=== PATIENT | female | born 1955 | race Caucasian/White ===

== ENCOUNTER 2017-07-30 11:30 | Emergency (ER) | payer SELFPAY ==
[2017-07-30] MEDS ORDERED: NS 0.9% 1000 ML* 1,000 ML IV ONE (12:33)
[2017-07-30 14:33] LABS: Hematocrit 38 % (35-47); Hemoglobin 12.9 g/dl (12.0-16.0); Mean Corpuscular HGB Conc 34 g/dl (31-36); Mean Corpuscular Hemoglobin 30 pg (27-31); Mean Corpuscular Volume 89 fL (80-97); Mean Platelet Volume 9 um3 (7.4-10.4); Red Blood Count 4.28 10^6/ul (4.0-5.4); Red Cell Distribution Width 15 % (10.5-15); White Blood Count 11.6 10^3/ul (3.5-10.8)
[2017-07-30 14:43] LABS: BUN/Creatinine Ratio 23.7 (8-20); Calcium 9.3 mg/dL (8.6-10.3); EGFR African American 99.8 (>60); EGFR Non-African American 77.6 (>60); Globulin 3.1 g/dL (2-4); Magnesium 1.9 mg/dL (1.9-2.7); Potassium 3.6 mmol/L (3.5-5.0); Total Bilirubin 0.6 mg/dL (0.2-1.0); Total Protein 7.1 g/dL (6.4-8.9)
[2017-07-30 14:49] LABS: Urine Bacteria Absent (Absent); Urine Bilirubin Negative (Negative); Urine Glucose Negative (Negative); Urine Nitrite Negative (Negative)
[2017-07-30] MEDS ORDERED: Iohexol 300* (CONTRAST) 10 ML SDV IV ONE (15:00)
[2017-07-30 15:01] LABS: TSH (Thyroid Stimulating Horm) 1.33 mcIU/mL (0.34-5.60)
--- NOTE | 2017-07-30 15:33 | RAD ---
INDICATION: Left lower quadrant pain. COMPARISON: None TECHNIQUE: Axial source images were obtained from the hemidiaphragms to the symphysis pubis following administration of oral and intravenous contrast. 115 mL Omnipaque 300 was utilized. Coronal and sagittal reconstructed images were acquired. Lung bases: The lung bases are clear. Liver: The liver is normal in size. There is a subcentimeter cyst or hemangioma involving the anterior right hepatic lobe.. There is no ductal dilatation. Gallbladder: There is nonvisualization gallbladder. The surgical history is marked as "none" Spleen: The spleen is normal in size. There are no masses. Pancreas: There is no focal pancreatic mass or ductal dilatation. Adrenal glands: There is no evidence of adrenal mass. Kidneys: The kidneys are normal in size and position. There are prompt nephrograms and there is prompt excretion bilaterally. There are no renal parenchymal masses. There is no evidence of nephrolithiasis. Adenopathy: There is no evidence of adenopathy by size criteria. Fluid collections: There are no free or localized fluid collections. Vessels:There are no significant atherosclerotic changes involving the aorta. There is no focal aneurysm. The iliac vessels are normal in caliber. The IVC appears normal. GI tract: There are no acute CT bowel findings. There is no obstruction. The stomach and small bowel appear normal. The lower GI tract remarkable for diverticula of the sigmoid and descending colon with inflammatory change with bowel wall thickening and perienteric stranding at the junction of the descending colon and sigmoid colon. There are no findings of obstruction, perforation, or abscess. The appendix appears normal. Pelvic organs: There is presumed hysterectomy although the surgical history is marked as "none". There is no adnexal mass Bladder: There are no bladder masses. Abdominal and pelvic soft tissues: The extraperitoneal abdominal and pelvic soft tissues appear normal.. Osseous structures: There are no acute osseous findings. There is multilevel degenerative disc disease. Other: None IMPRESSION: DIVERTICULITIS OF THE DESCENDING AND SIGMOID COLON WITHOUT OBSTRUCTION, PERFORATION, OR ABSCESS FORMATION
[2017-07-30] MEDS ORDERED: metroNIDAZOLE TAB* 250 MG PO ONE (16:44)
[2017-07-30] MEDS ORDERED: Ciprofloxacin TAB* 500 MG PO ONE (16:44)
[2017-07-30 17:27] VITALS: BP 115/68
--- NOTE | 2017-07-30 22:04 | ED ---
Susan Morales Gabriel, scribed for Britany White MD on 07/30/17 at 1245 . Abdominal Pain/Female - HPI Summary HPI Summary: This patient is a 61 year old F presenting to [facility] with a chief complaint of ABD pain since yesterday at 1030. The patient rates the pain 8/10 in severity and describes it as sharp and residing in her LLQ. Patient reports nausea. Patient denies v/d, urinary symptoms, fever, chills, MILIAN, ear pain, neck pain, SOB, CP, sore throat, melena, dysuria, bruises, anxiety and depression. Pt has eczema (not increased from baseline). - History of Current Complaint Chief Complaint: EDAbdPain Stated Complaint: LT ABD PAIN Hx Obtained From: Patient Onset/Duration: Lasting Days - 2, Still Present Timing: Constant Severity Initially: Moderate Severity Currently: Moderate Pain Intensity: 8 Pain Scale Used: 0-10 Numeric Location: Discrete At: LLQ Radiates: No Associated Signs and Symptoms: Positive: Negative - v/d, urinary symptoms, fever , chills, MILIAN, ear pain, neck pain, SOB, CP, sore throat, melena, dysuria, bruises, anxiety and depression, Nausea Allergies/Adverse Reactions: Allergies Allergy/AdvReac Type Severity Reaction Status Date / Time No Known Allergies Allergy Verified 07/30/17 11:34 PMH/Surg Hx/FS Hx/Imm Hx Previously Healthy: No GI History: Reports: Hx Diverticulosis Psychiatric History: Denies: Hx Anxiety, Hx Depression Infectious Disease History: No Infectious Disease History: Denies: Traveled Outside the [place] in Last 30 Days - Family History Known Family History: Positive: Cardiac Disease, Hypertension Negative: Diabetes, Renal Disease, Blood Disorder - Social History Alcohol Use: None Substance Use Type: Reports: None Smoking Status (MU): Never Smoked Tobacco Review of Systems Negative: Fever, Chills Negative: Ear Ache Negative: Chest Pain Negative: Shortness Of Breath Gastrointestinal: Negative - melena Positive: Abdominal Pain, Nausea. Negative: Vomiting, Diarrhea Negative: dysuria, hematuria Musculoskeletal: Negative - neck pain Positive: Rash - eczema (not increased from baseline) . Negative: Bruising Negative: Headache Negative: Anxious, Depressed All Other Systems Reviewed And Are Negative: No Physical Exam - Summary Physical Exam Summary: Appearance: Alert, conversive, nontoxic appearing Skin: Warm, dry, no mottling, no rashes, no contusions HEENT: EOMI, PERRL, slightly dry mucous membranes Neck: No masses on the neck, supple Respiratory: Clear to auscultation, breath sounds present, no rales, no rhonchi , no wheezes Cardiovascular: RRR, pulses are symmetrical in both lower and upper extremities Abdomen: Soft, TTP in LLQ and LUQ Bowel Sounds: Present, good bowel sounds Musculoskeletal: No CVA tenderness, no obvious deformity, moving all extremities in a grossly normal manner Neurological: A&Ox3, CN II-XII Intact, moving all extremities symmetrically Psychiatric: Normal affect and mood Triage Information Reviewed: Yes Vital Signs On Initial Exam: Initial Vitals Temp Pulse Resp BP Pulse Ox 97.4 F 73 15 135/71 97 07/30/17 11:34 07/30/17 11:34 07/30/17 11:34 07/30/17 11:34 07/30/17 11:34 Vital Signs Reviewed: Yes - Mario Coma Scale Coma Scale Total: 15 Diagnostics - Vital Signs Vital Signs Temp Pulse Resp BP Pulse Ox 07/30/17 12:00 64 96 07/30/17 11:58 62 96 07/30/17 11:34 97.4 F 73 15 135/71 97 - Laboratory Lab Results: Lab Results 07/30/17 07/30/17 07/30/17 Range/Units 12:45 12:45 12:45 WBC 11.6 H (3.5-10.8) 10^3/ul RBC 4.28 (4.0-5.4) 10^6/ul Hgb 12.9 (12.0-16.0) g/dl Hct 38 (35-47) % MCV 89 (80-97) fL MCH 30 (27-31) pg MCHC 34 (31-36) g/dl RDW 15 (10.5-15) % Plt Count 315 (150-450) 10^3/ul MPV 9 (7.4-10.4) um3 Neut % (Auto) 66.8 (38-83) % Lymph % (Auto) 23.7 L (25-47) % [place] % (Auto) 8.8 (1-9) % Eos % (Auto) 0.4 (0-6) % Baso % (Auto) 0.3 (0-2) % Absolute Neuts (auto) 7.7 (1.5-7.7) 10^3/ul Absolute Lymphs (auto) 2.7 (1.0-4.8) 10^3/ul Absolute Monos (auto) 1.0 H (0-0.8) 10^3/ul Absolute Eos (auto) 0 (0-0.6) 10^3/ul Absolute Basos (auto) 0 (0-0.2) 10^3/ul Absolute Nucleated RBC 0 10^3/ul Nucleated RBC % 0 Sodium 137 (133-145) mmol/L Potassium 3.6 (3.5-5.0) mmol/L Chloride 106 (101-111) mmol/L Carbon Dioxide 25 (22-32) mmol/L Anion Gap 6 (2-11) mmol/L BUN 18 (6-24) mg/dL Creatinine 0.76 (0.51-0.95) mg/dL Est GFR ( Amer) 99.8 (>60) Est GFR (Non-Af Amer) 77.6 (>60) BUN/Creatinine Ratio 23.7 H (8-20) Glucose 96 (70-100) mg/dL Calcium 9.3 (8.6-10.3) mg/dL Magnesium 1.9 (1.9-2.7) mg/dL Total Bilirubin 0.60 (0.2-1.0) mg/dL AST 14 (13-39) U/L ALT 13 (7-52) U/L Alkaline Phosphatase 88 (34-104) U/L Total Protein 7.1 (6.4-8.9) g/dL Albumin 4.0 (3.2-5.2) g/dL Globulin 3.1 (2-4) g/dL Albumin/Globulin Ratio 1.3 (1-3) TSH 1.33 (0.34-5.60) mcIU/mL Urine Color Yellow Urine Appearance Clear Urine pH 5.0 (5-9) Ur Specific [place] 1.029 (1.010-1.030) Urine Protein Negative (Negative) Urine Ketones Negative (Negative) Urine Blood 2+ H (Negative) Urine Nitrate Negative (Negative) Urine Bilirubin Negative (Negative) Urine Urobilinogen Negative (Negative) Ur Leukocyte Esterase Trace H (Negative) Urine WBC (Auto) 1+(6-10/hpf) H (Absent) Urine RBC (Auto) Trace(0-2/hpf) (Absent) Ur Squamous Epith Cells Present H (Absent) Urine Bacteria Absent (Absent) Urine Glucose Negative (Negative) Result Diagrams: 07/30/17 12:45 07/30/17 12:45 Lab Statement: Any lab studies that have been ordered have been reviewed, and results considered in the medical decision making process. - CT ABD/Pelvis CT CT Interpretation Completed By: Radiologist - DIVERTICULITIS OF THE DESCENDING AND SIGMOID COLON WITHOUT OBSTRUCTION, PERFORATION, OR ABSCESS FORMATION ED physician has reviewed this radiology report and agrees. Abdominal Pain Fem Course/Dx - Course Course Of Treatment: This patient is a 61 year old F presenting to [facility] with a chief complaint of ABD pain since yesterday at 1030. The patient rates the pain 8/10 in severity and describes it as sharp and residing in her LLQ. . ABD/ Pelvis CT reveals, per radiologist, DIVERTICULITIS OF THE DESCENDING AND SIGMOID COLON WITHOUT OBSTRUCTION,. PERFORATION, OR ABSCESS FORMATION. ED physician has reviewed this radiology report and agrees. Test results with no significant abnormalities except for UA revealing slight dehydration. Her CBC was normal and her UA was negative for a UTI. In the ED course the patient was given Cipro and IV fluids. Patient will be discharged with prescription for Cipro and Metronidazole and follow up from Dr. Gupta. The patient is agreeable with this plan. - Diagnoses Provider Diagnoses: Diverticulitis Discharge - Discharge Plan Condition: Stable Disposition: HOME Prescriptions: Ciprofloxacin HCl [Cipro 500 MG TAB] 500 mg PO BID #20 tab Metronidazole [Flagyl 500 MG TAB] 500 mg PO BID #20 tab Forms: *Work Release Referrals: Jordan Gupta MD [Medical Doctor] - Additional Instructions: Take tylenol and motrin for pain. return if worse or any new symptoms. It is imperative to follow up with your primary care physician. The documentation as recorded by the Susan montiel Gabriel accurately reflects the service I personally performed and the decisions made by , Britany White MD.
== END 2017-07-30 17:27 | disposition home or self-care (01) ==
LOC: ED 11:30
DX: K57.92 Diverticulitis of intestine, part unspecified, without perforation or abscess without bleeding (principal); R10.32 Left lower quadrant pain; R11.0 Nausea
CPT/HCPCS: 36415; 74177; 80053; 81003; 81015; 83735; 84443; 85025; 87086; 99282; A9270-GY; Q9967

== ENCOUNTER 2021-07-28 17:51 | Inpatient (IN) ==
[2021-07-28] MEDS ORDERED: VERAPAMIL 2.5 MG/ML 2 ML VIAL ** 5 mg/2 ml ONE (17:55)
[2021-07-28] MEDS ORDERED: Midazolam 5 mg/5 ml VIAL 1 mg/ml 5 ml VIAL (5 mg) ONE (17:55)
[2021-07-28] MEDS ORDERED: Iohexol 350 (CONTRAST) 200 ML MDV IV ONE ×2 (17:55→19:53)
[2021-07-28] MEDS ORDERED: Heparin 2 UNITS/ML 1000 mls IV ONE (17:55)
[2021-07-28] MEDS ORDERED: fentaNYL 100 mcg/2 ml 50 MCG/ML VIAL ONE (17:55)
[2021-07-28] MEDS ORDERED: Iohexol 350 (CONTRAST) 100 ML PAK IV ONE (17:55)
[2021-07-28] MEDS ORDERED: Heparin 1,000 UNIT/ML 10 ml (10,000 UNITS) CATHLAB/DIALYSIS ONE (17:55)
[2021-07-28] MEDS ORDERED: Lidocaine 1% VIAL 10 MG/ML VIAL ONE (17:55)
[2021-07-28] MEDS ORDERED: nitroGLYCERIN DRIP 100 MCG/ML 250 ML BTL ONE (17:55)
[2021-07-28] MEDS ORDERED: Heparin 5000 UNITS/ML 1 mL VIAL ONE (17:57)
[2021-07-28 18:08] LABS: ABS Basophils 0.1 10^3/ul (0-0.2); ABS Eosinophils 0.1 10^3/ul (0-0.6); ABS Lymphocytes 3.7 10^3/ul (1.0-4.8); ABS Monocytes 0.9 10^3/ul (0-0.8); ABS Neutrophils 15.7 10^3/ul (1.5-7.7); Eosinophil % 0.5 %; Hematocrit 41 % (35-47); Hemoglobin 13.9 g/dL (12.0-16.0); Lymphocyte % 18.1 %; Mean Corpuscular HGB Conc 34 g/dL (31-36); Mean Corpuscular Hemoglobin 33 pg (27-31); Mean Corpuscular Volume 96 fL (80-97); Mean Platelet Volume 8.4 fL (7.4-10.4); Platelet Count 380 10^3/uL (150-450); Red Blood Count 4.27 10^6 /uL (3.70-4.87); Red Cell Distribution Width 13 % (10-15); White Blood Count 20.5 10^3/uL (3.5-10.8)
[2021-07-28] MEDS ORDERED: Heparin 2 UNITS/ML 1000 mls 1,000 ML IV ONE (18:09)
[2021-07-28 18:22] LABS: INR 1.02 (0.86-1.15)
[2021-07-28 18:29] LABS: Troponin I 0.01 ng/mL (<0.03)
[2021-07-28] MEDS ORDERED: Heparin - STEMI 5,000 UNITS/ML 1 ml VIAL IV ONE (18:34)
[2021-07-28] MEDS ORDERED: DOPamine 800 MG/250 ML IVPREM 800 MG/250 ML ML CENTR ONE (18:38)
[2021-07-28] MEDS ORDERED: Norepinephrine 16MCG/ML IVPRE 4,000 MCG/250 ML BAG IV ONE (18:47)
[2021-07-28] MEDS ORDERED: Ondansetron 4 mg VIAL 2 MG/ML 2 ml VIAL ONE (18:58)
[2021-07-28 19:02] LABS: Albumin 3.7 g/dL (3.2-5.2); Albumin/Globulin Ratio 1.4 (1-3); Calcium 8.7 mg/dL (8.6-10.3); Globulin 2.7 g/dL (2-4); Magnesium 2.2 mg/dL (1.9-2.7); Total Bilirubin 0.6 mg/dL (0.2-1.0); Total Protein 6.4 g/dL (6.4-8.9); eGFR CKD-EPI 48.6 (>60)
[2021-07-28] MEDS ORDERED: Magnesium Sulfate 2 gm BAG 2 GM/50 ML BAG ONE (19:02)
[2021-07-28] MEDS ORDERED: Amiodarone 150 mg IVPREMIX 150 MG/100 ML BAG IV ONE (19:03)
[2021-07-28] MEDS ORDERED: Bivalirudin 250 MG VIAL ONE ×2 (19:10→20:08)
[2021-07-28] MEDS ORDERED: Amiodarone 360 MG IVPREMIX 360 MG/200 ML BAG IV ONE (19:11)
[2021-07-28] MEDS ORDERED: Eptifibatide IV (Load dose) 2 MG/ML 10 ml VIAL ONE (19:15)
[2021-07-28] MEDS ORDERED: KCL 10 MEQ/50 ML IVPREMIX 10 MEQ/50 ML BAG ONE ×2 (19:31→20:30)
[2021-07-28] MEDS ORDERED: Atropine 0.1 MG/ML 10 ml SYR (1 mg) ONE (21:13)
[2021-07-28] MEDS ORDERED: Heparin DRIP 25,000 UNITS BAG 25,000 UNITS/500 ML BAG ONE (21:55)
[2021-07-28] MEDS ORDERED: Heparin DRIP 25,000 UNITS BAG 25,000 UNITS/500 ML BAG IV SCH ×2 (22:45→23:00)
[2021-07-28] MEDS ORDERED: Ondansetron 4 mg VIAL 2 MG/ML 2 ml VIAL IV PRN (22:48)
[2021-07-28] MEDS ORDERED: Prochlorperazine 5 mg/ml 2 ml VIAL (10 mg) IV PRN (22:49)
[2021-07-28] MEDS ORDERED: Heparin 5000 UNITS/ML 1 mL VIAL IV SCH (23:00)
[2021-07-28] MEDS ORDERED: Norepinephrine 16MCG/ML IVPRE 4,000 MCG/250 ML BAG IV SCH (23:00)
[2021-07-28] MEDS ORDERED: DOPamine 800 MG/250 ML IVPREM 800 MG/250 ML ML CENTR SCH (23:00)
[2021-07-28] MEDS: NS 0.9% 1000 ml BAG 1,000 ML IV SCH (23:17)
[2021-07-29] MEDS: KCL 20 MEQ/100 ML IVPREMIX 20 MEQ/100 ML BAG IV SCH ×3 (00:09→05:44)
[2021-07-29 00:33] LABS: Rapid COVID-19 Molecular Undetected (Undetected)
[2021-07-29 00:44] LABS: Troponin I 51.54 ng/mL (<0.03)
[2021-07-29 04:21] LABS: ABS Basophils 0.1 10^3/ul (0-0.2); ABS Lymphocytes 1.3 10^3/ul (1.0-4.8); ABS Monocytes 0.9 10^3/ul (0-0.8); ABS Neutrophils 18.4 10^3/ul (1.5-7.7); Hematocrit 39 % (35-47); Hemoglobin 13.2 g/dL (12.0-16.0); Lymphocyte % 6.5 %; Mean Corpuscular HGB Conc 34 g/dL (31-36); Mean Corpuscular Hemoglobin 32 pg (27-31); Mean Corpuscular Volume 94 fL (80-97); Mean Platelet Volume 8.6 fL (7.4-10.4); Platelet Count 400 10^3/uL (150-450); Red Blood Count 4.14 10^6 /uL (3.70-4.87); Red Cell Distribution Width 13 % (10-15); White Blood Count 20.7 10^3/uL (3.5-10.8)
[2021-07-29 04:39] LABS: Calcium 8.2 mg/dL (8.6-10.3); HDL Cholesterol 34.2 mg/dL; eGFR CKD-EPI 67.8 (>60)
[2021-07-29 04:56] LABS: Troponin I > 74.00 ng/mL (<0.03)
[2021-07-29] MEDS: NS 0.9% 1000 ml BAG 1,000 ML IV SCH ×2 (08:38→17:25)
[2021-07-29 09:40] LABS: Magnesium 1.7 mg/dL (1.9-2.7)
[2021-07-29] MEDS ORDERED: Midazolam 2 mg/2 ml VIAL 1 mg/ml 2 ml VIAL (2 mg) ONE (11:20)
[2021-07-29] MEDS ORDERED: fentaNYL 100 mcg/2 ml 50 MCG/ML VIAL ONE (11:21)
[2021-07-29] MEDS ORDERED: Midazolam 2 mg/2 ml VIAL 1 mg/ml 2 ml VIAL (2 mg) IV SLOW PU ONE (11:30)
[2021-07-29] MEDS ORDERED: fentaNYL 100 mcg/2 ml 50 MCG/ML VIAL IV ONE (11:30)
[2021-07-29 13:48] LABS: Anion Gap 8 mmol/L (2-11); Blood Urea Nitrogen 20 mg/dL (6-24); CO2 Carbon Dioxide 19 mmol/L (22-32); Calcium 8.5 mg/dL (8.6-10.3); Chloride 111 mmol/L (101-111); Glucose 151 mg/dL (70-100); Magnesium 1.7 mg/dL (1.9-2.7); Potassium 4.2 mmol/L (3.5-5.0); Sodium 138 mmol/L (135-145); eGFR CKD-EPI 72.4 (>60)
[2021-07-29 14:04] LABS: Troponin I > 79.00 ng/mL (<0.03)
[2021-07-30 04:21] LABS: Hematocrit 31 % (35-47); Hemoglobin 10.9 g/dL (12.0-16.0); Mean Corpuscular HGB Conc 35 g/dL (31-36); Mean Corpuscular Hemoglobin 33 pg (27-31); Mean Corpuscular Volume 95 fL (80-97); Mean Platelet Volume 8.6 fL (7.4-10.4); Platelet Count 280 10^3/uL (150-450); Red Cell Distribution Width 13 % (10-15); White Blood Count 18.4 10^3/uL (3.5-10.8)
[2021-07-30 04:38] LABS: Blood Urea Nitrogen 16 mg/dL (6-24); CO2 Carbon Dioxide 20 mmol/L (22-32); Calcium 8.8 mg/dL (8.6-10.3); Glucose 115 mg/dL (70-100); Magnesium 1.9 mg/dL (1.9-2.7); Potassium 4.1 mmol/L (3.5-5.0); Sodium 138 mmol/L (135-145)
[2021-07-30 04:40] LABS: Anion Gap 4 mmol/L (2-11); Chloride 114 mmol/L (101-111)
[2021-07-30 04:44] LABS: Troponin I 56.37 ng/mL (<0.03)
[2021-07-30] MEDS ORDERED: Flu vaccine *QUAD* 2021-22* 0.5 ML SYRINGE IM ONE (09:00)
[2021-07-30] MEDS ORDERED: Enoxaparin 40 MG/0.4 ML SYR SUBCUT SCH (18:30)
[2021-07-31 06:54] LABS: ABS Basophils 0.1 10^3/ul (0-0.2); ABS Eosinophils 0.1 10^3/ul (0-0.6); ABS Lymphocytes 3.2 10^3/ul (1.0-4.8); ABS Neutrophils 9.8 10^3/ul (1.5-7.7); Eosinophil % 0.5 %; Hematocrit 31 % (35-47); Hemoglobin 10.5 g/dL (12.0-16.0); Lymphocyte % 22.6 %; Mean Corpuscular HGB Conc 34 g/dL (31-36); Mean Corpuscular Hemoglobin 33 pg (27-31); Mean Corpuscular Volume 96 fL (80-97); Mean Platelet Volume 8.7 fL (7.4-10.4); Platelet Count 259 10^3/uL (150-450); Red Blood Count 3.18 10^6 /uL (3.70-4.87); Red Cell Distribution Width 13 % (10-15); White Blood Count 14.2 10^3/uL (3.5-10.8)
[2021-07-31 07:12] LABS: Calcium 8.4 mg/dL (8.6-10.3); Magnesium 1.9 mg/dL (1.9-2.7); eGFR CKD-EPI 79.8 (>60)
[2021-07-31 08:13] VITALS: BP 136/64
[2021-07-31] MEDS ORDERED: Flu vaccine *QUAD* 2021-22* 0.5 ML SYRINGE IM ONE (09:00)
[2021-07-31 15:48] LABS: ABS Eosinophils 0.1 10^3/ul (0-0.6); ABS Lymphocytes 3.1 10^3/ul (1.0-4.8); ABS Monocytes 0.8 10^3/ul (0-0.8); ABS Neutrophils 9.2 10^3/ul (1.5-7.7); Eosinophil % 0.7 %; Hematocrit 31 % (35-47); Hemoglobin 10.7 g/dL (12.0-16.0); Lymphocyte % 23.6 %; Mean Corpuscular HGB Conc 34 g/dL (31-36); Mean Corpuscular Hemoglobin 33 pg (27-31); Mean Corpuscular Volume 96 fL (80-97); Mean Platelet Volume 8.6 fL (7.4-10.4); Platelet Count 263 10^3/uL (150-450); Red Blood Count 3.28 10^6 /uL (3.70-4.87); Red Cell Distribution Width 13 % (10-15); White Blood Count 13.2 10^3/uL (3.5-10.8)
== END 2021-07-31 00:01 | disposition home or self-care (01) | DRG 167 ==
LOC: ED 17:51 → CHICATH 18:01 → ICU 18:10 → MEDTELE 07-30 14:54
PROVIDERS: ATTEND Hospitalist